=== PATIENT | male | born 1940 ===

== ENCOUNTER 2016-10-22 12:19 | Observation (INO) | payer OTHER ==
[2016-10-22 15:06] LABS: Hematocrit 49 % (42-52); Hemoglobin 16.2 g/dl (14.0-18.0); Mean Corpuscular HGB Conc 34 g/dl (31-36); Mean Corpuscular Hemoglobin 30 pg (27-31); Mean Corpuscular Volume 90 fL (80-94); Mean Platelet Volume 9 um3 (7.4-10.4); Red Blood Count 5.39 10^6/ul (4.0-5.4); Red Cell Distribution Width 13 % (10.5-15); White Blood Count 7.4 10^3/ul (3.5-10.8)
[2016-10-22 15:22] LABS: Albumin 4.7 g/dL (3.2-5.2); BUN/Creatinine Ratio 23.7 (8-20); C Reactive Protein 2.28 mg/L (< 5.00); EGFR Non-African American 75.5 (>60); Globulin 3.5 g/dL (2-4); Potassium 4.5 mmol/L (3.5-5.0); Total Bilirubin 0.6 mg/dL (0.2-1.0); Total Protein 8.2 g/dL (6.4-8.9)
[2016-10-22 15:28] LABS: Troponin I 0.04 ng/mL (<0.04)
--- NOTE | 2016-10-22 15:37 | RAD ---
HISTORY: Shortness of breath COMPARISONS: None VIEWS: 2: Frontal dual-energy and lateral views of the chest. FINDINGS: CARDIOMEDIASTINAL SILHOUETTE: The cardiomediastinal silhouette is normal. LELA: The lela are normal. PLEURA: The costophrenic angles are sharp. No pleural abnormalities are noted. LUNG PARENCHYMA: The lungs are clear. ABDOMEN: The upper abdomen is clear. There is no subphrenic gas. BONES AND SOFT TISSUES: No bone or soft tissue abnormalities are noted. OTHER: None. IMPRESSION: NO ACTIVE CARDIOPULMONARY DISEASE.
[2016-10-22] MEDS ORDERED: NS 0.9% 1000 ML* 1,000 ML IV ONE (16:35)
--- NOTE | 2016-10-22 16:36 | ED ---
Barbra Valencia SooYoung, scribed for Jt Medrano MD on 10/22/16 at 1432 . Complex/Multi-Sys Presentation - HPI Summary HPI Summary: A 76 y/o M presents to ED with c/o mild chest tightness ongoing three weeks. Pt thought he might have PNA and went to [facility] today for antibiotics, but [facility] sent pt to ED for an abnormal EKG. Associated sx: productive cough two weeks ago, resolved; mild tiredness after going on a walk yesterday. Blood pressure was 149/81 at home this AM. He notes doing some exercises today and didn't have a problem. Denies chest tightness in ED, pedal edema. Pt was recently on a flight from [place] approx 3 weeks ago. No PMHx: COPD, asthma, emphysema. He states "feeling really good" and is keen to get back to work. - History Of Current Complaint Chief Complaint: EDUpperRespComplaint Time Seen by Provider: 10/22/16 14:28 Hx Obtained From: Patient Onset/Duration: Still Present Severity Currently: None Associated Signs And Symptoms: Positive: Weakness - tiredness, Cough - resolved , Chest Pain - mild tightness. Negative: Edema - Allergies/Home Medications Allergies/Adverse Reactions: Allergies Allergy/AdvReac Type Severity Reaction Status Date / Time No Known Allergies Allergy Verified 10/22/16 12:23 Home Medications: Home Medications Aspirin EC Low Dose* [Ecotrin EC Low Dose*] 81 mg PO DAILY 10/22/16 [History Confirmed 10/22/16] Hydrochlorothiazide TAB* [Hydrodiuril TAB*] 12.5 mg PO QAM 10/22/16 [History Confirmed 10/22/16] PMH/Surg Hx/FS Hx/Imm Hx Previously Healthy: Yes Cardiovascular History: Reports: Hx Hypertension Sensory History: Reports: Hx Contacts or Glasses - GLASSES Denies: Hx Hearing Aid Opthamlomology History: Reports: Hx Contacts or Glasses - GLASSES - Surgical History Surgery Procedure, Year, and Place: LEFT ACHILLES TENDON REPAIR 2002 [facility] [place] Hx Anesthesia Reactions: No Infectious Disease History: Reports: Traveled Outside the [place] in Last 30 Days - [facility] - Family History Known Family History: Positive: Other - neg: family anaesthesia reaction - Social History Occupation: Employed Full-time Lives: Alone Alcohol Use: Weekly Hx Substance Use: No Substance Use Type: Reports: None Hx Tobacco Use: No Smoking Status (MU): Never Smoked Tobacco Review of Systems Positive: Palpitations - abnormal EKG at [place], Chest Pain - mild tightness Positive: Cough - productive, resolved Neurological: Other - pos: mild tiredness All Other Systems Reviewed And Are Negative: Yes Physical Exam - Summary Physical Exam Summary: Cordell: well-appearing, no pain distress Skin: warm, skin color reflects, dry Head/Face: nml head/face inspection Eyes: EOMI, DARIANNA ENT: nml Neck: supple, non-tender Resp: CTA, breath sounds present Cardio: RRR Abd: nontender, soft Bowel: present Musc: nml, strength/ROM intact Neuro: nml, sensory/motor intact, A&O x 3 Psych: affect/mood appropriate Triage Information Reviewed: Yes Vital Signs On Initial Exam: Initial Vitals Temp Pulse Resp BP Pulse Ox 98.1 F 54 16 161/80 98 10/22/16 12:23 10/22/16 12:23 10/22/16 12:23 10/22/16 12:23 10/22/16 12:23 Vital Signs Reviewed: Yes Diagnostics - Vital Signs Vital Signs Temp Pulse Resp BP Pulse Ox 10/22/16 13:39 97.6 F 74 16 149/79 98 10/22/16 12:23 98.1 F 54 16 161/80 98 - Laboratory Lab Results: Lab Results 10/22/16 10/22/16 10/22/16 Range/Units 14:50 14:50 14:50 WBC 7.4 (3.5-10.8) 10^3/ul RBC 5.39 (4.0-5.4) 10^6/ul Hgb 16.2 (14.0-18.0) g/dl Hct 49 (42-52) % MCV 90 (80-94) fL MCH 30 (27-31) pg MCHC 34 (31-36) g/dl RDW 13 (10.5-15) % Plt Count 152 (150-450) 10^3/ul MPV 9 (7.4-10.4) um3 Neut % (Auto) 70.7 (38-83) % Lymph % (Auto) 17.6 L (25-47) % Roseau % (Auto) 9.4 H (1-9) % Eos % (Auto) 1.4 (0-6) % Baso % (Auto) 0.9 (0-2) % Absolute Neuts (auto) 5.2 (1.5-7.7) 10^3/ul Absolute Lymphs (auto) 1.3 (1.0-4.8) 10^3/ul Absolute Monos (auto) 0.7 (0-0.8) 10^3/ul Absolute Eos (auto) 0.1 (0-0.6) 10^3/ul Absolute Basos (auto) 0.1 (0-0.2) 10^3/ul Absolute Nucleated RBC 0.01 10^3/ul Nucleated RBC % 0.2 INR (Anticoag Therapy) (0.89-1.11) D-Dimer, Quantitative (Less Than 230) ng/mL Sodium 135 (133-145) mmol/L Potassium 4.5 (3.5-5.0) mmol/L Chloride 101 (101-111) mmol/L Carbon Dioxide 28 (22-32) mmol/L Anion Gap 6 (2-11) mmol/L BUN 23 (6-24) mg/dL Creatinine 0.97 (0.67-1.17) mg/dL Est GFR ( Amer) 97.0 (>60) Est GFR (Non-Af Amer) 75.5 (>60) BUN/Creatinine Ratio 23.7 H (8-20) Glucose 109 H (70-100) mg/dL Lactic Acid 1.0 (0.5-2.0) mmol/L Calcium 10.0 (8.6-10.3) mg/dL Total Bilirubin 0.60 (0.2-1.0) mg/dL AST 34 (13-39) U/L ALT 38 (7-52) U/L Alkaline Phosphatase 61 (34-104) U/L Troponin I 0.04 H* (<0.04) ng/mL C-Reactive Protein 2.28 (< 5.00) mg/L B-Natriuretic Peptide ( - 100) pg/mL Total Protein 8.2 (6.4-8.9) g/dL Albumin 4.7 (3.2-5.2) g/dL Globulin 3.5 (2-4) g/dL Albumin/Globulin Ratio 1.3 (1-3) 10/22/16 10/22/16 Range/Units 14:50 14:50 WBC (3.5-10.8) 10^3/ul RBC (4.0-5.4) 10^6/ul Hgb (14.0-18.0) g/dl Hct (42-52) % MCV (80-94) fL MCH (27-31) pg MCHC (31-36) g/dl RDW (10.5-15) % Plt Count (150-450) 10^3/ul MPV (7.4-10.4) um3 Neut % (Auto) (38-83) % Lymph % (Auto) (25-47) % Roseau % (Auto) (1-9) % Eos % (Auto) (0-6) % Baso % (Auto) (0-2) % Absolute Neuts (auto) (1.5-7.7) 10^3/ul Absolute Lymphs (auto) (1.0-4.8) 10^3/ul Absolute Monos (auto) (0-0.8) 10^3/ul Absolute Eos (auto) (0-0.6) 10^3/ul Absolute Basos (auto) (0-0.2) 10^3/ul Absolute Nucleated RBC 10^3/ul Nucleated RBC % INR (Anticoag Therapy) 0.98 (0.89-1.11) D-Dimer, Quantitative 201 (Less Than 230) ng/mL Sodium (133-145) mmol/L Potassium (3.5-5.0) mmol/L Chloride (101-111) mmol/L Carbon Dioxide (22-32) mmol/L Anion Gap (2-11) mmol/L BUN (6-24) mg/dL Creatinine (0.67-1.17) mg/dL Est GFR ( Amer) (>60) Est GFR (Non-Af Amer) (>60) BUN/Creatinine Ratio (8-20) Glucose (70-100) mg/dL Lactic Acid (0.5-2.0) mmol/L Calcium (8.6-10.3) mg/dL Total Bilirubin (0.2-1.0) mg/dL AST (13-39) U/L ALT (7-52) U/L Alkaline Phosphatase (34-104) U/L Troponin I (<0.04) ng/mL C-Reactive Protein (< 5.00) mg/L B-Natriuretic Peptide 435 H ( - 100) pg/mL Total Protein (6.4-8.9) g/dL Albumin (3.2-5.2) g/dL Globulin (2-4) g/dL Albumin/Globulin Ratio (1-3) Result Diagrams: 10/22/16 14:50 10/22/16 14:50 Lab Statement: Any lab studies that have been ordered have been reviewed, and results considered in the medical decision making process. - Radiology CXR Xray Interpretation: No Acute Changes - IMPRESSION: no active cardiopulmonary dz Radiology Interpretation Completed By: Radiologist - EKG 1 EKG Rhythm: Atrial Fibrillation - 79 bpm Re-Evaluation - Re-Evaluation 1 Re-Evaluation Time: 16:17 Change: Unchanged Comment: Discussing results and cardiology's recommendation to admit with pt. Complex Multi-Symp Course/Dx Course Of Treatment: First trop is 0.04. Ddimer is 201. Assessment/Plan: DISCUSSED WITH DR RANGEL AND HOSPITALIST. ADMIT HOSPITALIST STABLE. - Diagnoses Provider Diagnoses: New onset a-fib, Chest pain - Physician Notifications Discussed Care Of Patient With: 1556: Spoke to Dr. Rangel, cardiology, recommends admitting pt. 1630: Spoke to Dr. Nicole, hospitalist, will admit Instructed by Provider To: Admit As Inpatient Discharge - Discharge Plan Condition: Stable Disposition: ADMITTED TO [facility] Referrals: Mo Olivares MD [Primary Care Provider] - The documentation as recorded by the Barbra fay SooYoung accurately reflects the service I personally performed and the decisions made by me, Jt Medrano MD.
[2016-10-22] MEDS ORDERED: Iohexol 350* (CONTRAST) 500 ML MDV IV ONE (16:42)
[2016-10-22 17:21] LABS: Magnesium 2.4 mg/dL (1.9-2.7)
--- NOTE | 2016-10-22 17:36 | RAD ---
Indication: Shortness of breath. Contrast: Administered 70.0 ml of OMNIPAQUE 350 mgi/ml CTA of the chest was performed after IV contrast administration. Coronal and sagittal reconstructed images were obtained. The pulmonary arterial tree is well opacified. There are no filling defects present to suggest pulmonary embolus. The trachea and major bronchi appear patent. Dependent changes are noted. No evidence of alveolar consolidation is noted. No pleural fluid is identified. The heart demonstrates no pericardial effusion. There is no mediastinal or hilar adenopathy. No pericardial effusion is noted. IMPRESSION: No evidence of pulmonary embolus is noted.
[2016-10-22] MEDS ORDERED: Ondansetron INJ* 2 MG/ML VIAL IV PRN (17:46)
[2016-10-22] MEDS ORDERED: Acetaminophen TAB* 325 MG PO PRN (17:46)
--- NOTE | 2016-10-22 21:40 | HP ---
HISTORY AND PHYSICAL: DATE OF ADMISSION: 10/22/16 PRIMARY CARE PROVIDER: Mo Olivares MD CONSULTING ORDER PROCESSOR: Toby Rangel MD ATTENDING PHYSICIAN WHILE IN THE HOSPITAL: Cornell Nicole MD * (report dictated by Otis Torres NP). CHIEF COMPLAINT: 1. Chest congestion. 2. Atrial fibrillation. HISTORY OF PRESENT ILLNESS: Mr. Carnes is a 76-year-old male patient, he has a history of hypertension and hyperlipidemia. He comes in to the ER today stating that he recently traveled from [facility]. He has been home now for a couple of weeks, but over the last couple of weeks, he has noticed that he has been having some chest congestion in the top part of his chest. He says at times it has felt tight, but he felt congested. Over for the last 3 days, he was feeling better. He put his humidifiers on at home and it improved the way he was feeling. He denied having any shortness of breath or any orthopnea, but he did admit to having decreased exercise tolerance. He says he tried going for his routine walk the other day and he just was having a hard time, he felt more tired. He denied having any fevers or chills. He said that he has not had any leg swelling or any leg discomfort or calf tenderness and no fevers or chills. He spoke to his who is currently at [facility]. She says she has known a few people with pneumonia and she encouraged him to be evaluated to make sure he did not have pneumonia, so the patient actually went to [place] today. They obtained an EKG and they found him to be in a AFib and he was sent to the ER for evaluation. Because of this, the hospitalist service was asked to evaluate for admission. PAST MEDICAL HISTORY: Significant for: 1. Hypertension. 2. Hyperlipidemia. PAST SURGICAL HISTORY: 1. He has had a hernia repair. 2. Achilles tendon repair. HOME MEDICATIONS: Include: 1. Aspirin 81 mg daily. 2. Hydrochlorothiazide 12.5 mg p.o. daily. ALLERGIES TO MEDICATION: Include no known drug allergies. FAMILY HISTORY: Both his parents did not have any heart disease. It was reviewed and noncontributory. SOCIAL HISTORY: He does not smoke. Occasionally drinks alcohol. He is . He is a [employer] professor. His surrogate decision maker is his daughter and . REVIEW OF SYSTEMS: There is no documented fever. He denied having any significant weight change. There was no double vision. There is no ear discharge. There is no rhinorrhea. There is no sore throat. No thyroid enlargement. There was chest tightness from the HPI. There is no dyspnea on exertion, no orthopnea, and no shortness of breath. There is no abdominal pain , no nausea, no vomiting. No dysuria, no frequency, no seizure, no loss of consciousness, no pruritus. No skin ulcerations. Review of 14 systems completed, all others negative. PHYSICAL EXAMINATION GENERAL: At this time, Mr. Carnes is a 76-year-old male patient. He appears to be well nourished, well developed. He is sitting in the ER stretcher. He does not appear to be in any acute distress. VITAL SIGNS: Blood pressure 152/84 with a pulse 65, respirations 18, O2 sat 96% , temperature 97.6. HEENT: Head is atraumatic, normocephalic. Eyes: EOMs are intact. Sclerae anicteric and not pale. Throat: Oral mucosa appears to be moist. No oropharyngeal erythema. NECK: Supple. LUNGS: Clear to auscultation bilaterally. No wheezes, rales, or rhonchi. HEART: Sounds S1, S2. Regular rate and rhythm. No murmurs, rubs, or gallops. ABDOMEN: Soft, flat, nontender. Bowel sounds present. EXTREMITIES: Pulses were 2+ throughout. He is able to move all 4 extremities with 5/5 strength. NEUROLOGIC: The patient is awake, alert, he is oriented x3. Tongue midline. Necktie Maker were equal. No gross focal deficits. SKIN: Grossly intact. DIAGNOSTIC STUDIES/LAB DATA: The labs today revealed WBC of 7.4, RBC of 5.39, hemoglobin of 16.2, hematocrit of 49, and platelet count 152. INR was 0.98, D- dimer 201, sodium 135, potassium 4.5, chloride of 101, bicarb 28, BUN 23, creatinine 0.97, glucose 109, lactic 1.0, calcium 10. Total mag 2.4, total bili is 0.4, AST 34, ALT 38, alk phos 61. Troponin 0.04. CRP at 2.28, BNP of 435, albumin 4.7. He had a chest, thorax CTA, which revealed no evidence of PE. Chest x-ray showed no active cardiopulmonary disease. He had an EKG obtained today. I do not have a previous for comparison, but it did show atrial fibrillation at a rate of 75, he had depression at V6. No ST elevations were noted. Old medical records were reviewed. ASSESSMENT AND PLAN: Mr. Carnes is a 76-year-old male patient coming in to the ER today with complaints of chest congestion and tightness, now found to be in atrial fibrillation. He will be admitted under observation status for: 1. Atrial fibrillation. Again, etiology is unclear when this started and what is causing this. For the time being, we will go ahead and place him on Xarelto. He is rate controlled. Dr. Rangel will be in to evaluate the patient in the morning for possible TAYLOR-guided cardioversion, possible stress test. In addition to this, I have already ordered an echo for the morning and we will cycle his troponins. 2. Indeterminate troponin. He certainly may have went into atrial fibrillation with RVR when he was walking the other day, which certainly may have caused a bumped trop, it is unclear. At this point, I will cycle his troponins, we will get an echo in the morning and Cardiology consult following. 3. Hypertension. Continue hydrochlorothiazide. 4. Hyperlipidemia. We will check a lipid panel in the morning. Continue statin therapy. 5. DVT prophylaxis: He is going to be on Xarelto. 6. Code status: Full code. 7. Fluid, electrolytes, and nutrition: He will be on heart healthy diet. TIME SPENT: Time spent on the admission 60 minutes, greater than half the time was spent [id number] with the patient obtaining my history and physical, other half the time spent going over the plan of care with the patient and implementing plan of care. I did discuss the plan of care with my attending, Dr. Nicole; he is in agreement. OTIS TORRES NP CC: Dr. Olivares; Dr. Rangel * [id number]/[facility] #: [id number] [facility]OSPITALArlene
[2016-10-22] MEDS: Rivaroxaban TAB(*) 20 MG TAB PO SCH (21:51)
[2016-10-23 04:57] LABS: Hematocrit 42 % (42-52); Mean Corpuscular HGB Conc 33 g/dl (31-36); Mean Corpuscular Hemoglobin 30 pg (27-31); Mean Corpuscular Volume 90 fL (80-94); Mean Platelet Volume 10 um3 (7.4-10.4); Red Cell Distribution Width 13 % (10.5-15); White Blood Count 6.9 10^3/ul (3.5-10.8)
[2016-10-23 05:16] LABS: Anion Gap 5 mmol/L (2-11); BUN/Creatinine Ratio 21.3 (8-20); Blood Urea Nitrogen 19 mg/dL (6-24); CO2 Carbon Dioxide 27 mmol/L (22-32); Calcium 8.8 mg/dL (8.6-10.3); Chloride 103 mmol/L (101-111); Cholesterol 164 mg/dL; EGFR African American 107.2 (>60); EGFR Non-African American 83.3 (>60); Glucose 101 mg/dL (70-100); HDL Cholesterol 39.6 mg/dL; LDL Cholesterol 113 mg/dL; Potassium 3.6 mmol/L (3.5-5.0); Sodium 135 mmol/L (133-145); Triglycerides 58 mg/dL
[2016-10-23] MEDS: Rivaroxaban TAB(*) 20 MG TAB PO SCH (09:00)
[2016-10-23] MEDS ORDERED: Aspirin EC Low Dose* 81 MG TAB.EC PO SCH (09:00)
[2016-10-23] MEDS ORDERED: Hydrochlorothiazide TAB* 25 MG PO SCH (09:00)
[2016-10-23] MEDS ORDERED: Midazolam* 1 MG/ML 5 ML VIAL (5 MG) ONE (14:47)
[2016-10-23] MEDS ORDERED: fentaNYL* 50 MCG/ML 2 ML VIAL (100 MCG VIAL) ONE (14:47)
[2016-10-23] MEDS ORDERED: Naloxone* 0.4 MG/ML 1 ML VIAL ONE (14:47)
[2016-10-23] MEDS ORDERED: Flumazenil* 0.1 MG/ML 5 ML MDV ONE (14:47)
[2016-10-23] MEDS ORDERED: Lidocaine 2% VISCOUS* 15 ML UDC ONE (14:47)
--- NOTE | 2016-10-23 15:27 | ECHO ---
Patient: MADHAVI LLAMAS [facility] Rec#: [id number] : 1940 Date: 10/23/2016 Age: 76y Height: 177.8 cm / 70.0 in Weight: 79.38 kg / 175.0 lbs Sex: M BSA: 1.97 Room#: 431 Admit Date#: 10/22/2016 Type: Inpatient Referring: Otis Torres NP Reading: Toby Rangel MD Olericulturist: María Rowell RDCS CC: Mo Olivares MD Transthoracic Echocardiogram Indication: A-fib BP: 113/62 HR: 72 Rhythm: A-Fib Findings History: HTN,HLD, a-fib. Technical Comments: The study quality is good. Completed at 1318. Left Ventricle: The left ventricular chamber size is normal. Mild to moderate concentric left ventricular hypertrophy is observed. Left ventricular systolic function is at the lower limits of normal. The estimated ejection fraction is 50-55%. There is no consistent Doppler evidence of clinically significant diastolic dysfunction. Left Atrium: The left atrium is moderately dilated. Right Ventricle: The right ventricular cavity size is normal. The right ventricular global systolic function is mildly reduced. Right Atrium: The right atrium is moderately dilated. Aortic Valve: The aortic valve is trileaflet. The aortic valve leaflets are mildly thickened. There is no evidence of aortic regurgitation. There is no evidence of aortic stenosis. Mitral Valve: The mitral valve leaflets are mildly thickened. There is trace to mild mitral regurgitation. There is no evidence of mitral stenosis. Tricuspid Valve: The tricuspid valve leaflets are normal. There is mild tricuspid regurgitation. There is evidence of borderline pulmonary hypertension. There is no tricuspid stenosis. Pulmonic Valve: The pulmonic valve appears normal. There is no evidence of pulmonic regurgitation. There is no pulmonic stenosis. Pericardium: The pericardium appears normal. Aorta: There is no dilatation of the ascending aorta. There is no dilatation of the aortic arch. There is no dilation of the aortic root. Pulmonary Artery: The main pulmonary artery appears normal. Venous: The inferior vena cava appears normal in size. There is a greater than 50% respiratory change in the inferior vena cava dimension. Conclusions Mild to moderate concentric left ventricular hypertrophy is observed. Left ventricular systolic function is at the lower limits of normal. The estimated ejection fraction is 50-55%. There is no consistent Doppler evidence of clinically significant diastolic dysfunction. The right ventricular global systolic function is mildly reduced. There is no evidence of aortic regurgitation. There is no evidence of aortic stenosis. The left atrium is moderately dilated. There is trace to mild mitral regurgitation. There is mild tricuspid regurgitation. There is evidence of borderline pulmonary hypertension. The pericardium appears normal. Measurements Name Value Normal Range RVIDd (AP) 2D 3.5 cm (0.9 - 2.6) RVDdMajor (2D) 3.8 cm (2.2 - 4.4) RAd ISD 4CH 6.3 cm (3.4 - 4.9) RA (A4C)W 5.5 cm (2.9 - 4.6) IVSd (2D) 1.5 cm (0.6 - 1) LVPWd (2D) 1.4 cm (0.6 - 1) LVIDd (2D) 3.6 cm (3.6 - 5.4) LVIDs (2D) 2.7 cm - LV FS (2D) 23 % (25 - 45) Aortic Annulus 1.7 cm (1.4 - 2.6) Ao root diameter (2D) 3.3 cm (2.1 - 3.5) Ascending Ao 3.2 cm (2.1 - 3.4) Aortic arch 2.5 cm (1.8 - 3.4) Descending Ao 0.5 cm - LA dimension (AP) 2D 5.2 cm (2.3 - 3.8) LAd ISD 4CH 7 cm (2.9 - 5.3) LA ISD 4CH W 5 cm (2.5 - 4.5) Name Value Normal Range LA ESV SP 4CH (A/L) 118 ml - LA ESV SP 2CH (A/L) 82 ml - LA ESV BP (A/L) 100 ml - LA ESV BP (A/L) index 50.93 ml/m2 - LA ESV SP 4CH (MOD) 106 ml - LA ESV SP 2CH (MOD) 79 ml - Name Value Normal Range MV E-wave Vmax 0.8 m/sec - MV deceleration time 185 msec - LV septal e' Vmax 0.05 m/sec - LV lateral e' Vmax 0.09 m/sec - LV E:e' septal ratio 16 ratio - LV E:e' lateral ratio 8.89 ratio - Name Value Normal Range AV Vmax 1.3 m/sec - AV VTI 25.1 cm - AV peak gradient 6.87 mmHg - AV mean gradient 3.33 mmHg - LVOT diameter 2 cm - LVOT Vmax 0.7 m/sec - LVOT VTI 15 cm - LVOT peak gradient 1.94 mmHg - LVOT mean gradient 0.81 mmHg - SV LVOT 49 ml - Name Value Normal Range TR Vmax 3 m/sec - TR peak gradient 36 mmHg - RAP 3 mmHg - RVSP 39 mmHg - IVC diameter 1.5 cm - Name Value Normal Range PV Vmax 0.7 m/sec - PV peak gradient 1.9 mmHg -
--- NOTE | 2016-10-23 16:28 | TEE ---
Patient: MADHAVI LLAMAS [facility] Rec#: [id number] : 1940 Date: 10/23/2016 Age: 76y Height: 175.26 cm / 69.0 in Weight: 79.38 kg / 175.0 lbs Sex: M BSA: 1.95 Room#: [facility] Type: Inpatient Referring: Toby Rangel MD Performing: Toby Rangel MD Reading: Toby Rangel MD Brim Rounder: María Rowell [facility] Nurse: Mirta Mirza RN CC: Mo Olivares MD Transesophageal Echocardiogram Indication: A-fib BP: 152/79 HR: 84 Rhythm: A-Fib Findings History: CP,a-fib. Technical Comments: The study quality is good. Left Ventricle: The left ventricular chamber size is normal. Left ventricular systolic function is at the lower limits of normal. The estimated ejection fraction is 50-55%. Left Atrium: The left atrium is moderately dilated. There is faint spontaneous echo contrast visualized in the left atrium cavity and appendage. There is no thrombus visualized in the left atrial appendage. Right Ventricle: The right ventricular cavity size is normal. The right ventricular global systolic function is normal. Right Atrium: The right atrium is mild to moderately dilated. A patent foramen ovale is not demonstrated with color Doppler and agitated contrast. Aortic Valve: The aortic valve is trileaflet. There is no evidence of aortic regurgitation. Mitral Valve: The mitral valve leaflets appear normal. There is mild mitral regurgitation. Tricuspid Valve: The tricuspid valve leaflets are normal. There is moderate tricuspid regurgitation. There is no tricuspid stenosis. Pulmonic Valve: The pulmonic valve appears normal. There is mild pulmonic regurgitation. There is no pulmonic stenosis. Pericardium: The pericardium appears normal. Aorta: There is no dilatation of the ascending aorta. There is no dilatation of the aortic arch. There is no dilation of the aortic root. There is no plaque visualized in the ascending aorta. There is no plaque visualized in the transverse aorta. There is no plaque visualized in the descending aorta. Pulmonary Artery: The main pulmonary artery appears normal. Venous: The bicaval view was obtained and appears normal. The pulmonary veins appear normal in size. 1 out of 4 seen. The flow pattern of the pulmonary veins appear normal. TAYLOR Procedures: History and physical as well as labs were reviewed. The patient was in a fasting state. Risks and benefits of the procedure, including alternatives, were discussed and written informed consent was obtained. The patient and/or their health care computer help desk representative expressed understanding of the procedure, risks and benefits. Baseline and continuous monitoring of blood pressure, heart rate, pulse oximetry and heart rhythm was performed throughout the procedure. The appropriate time-out procedure was performed as per [facility] protocol. The patient was placed in the left lateral decubitus position. The patient's posterior pharynx was anesthetized with 20ml of 2% viscous lidocaine. The patient received IV Midazolam with a total dose of 4 mg. An oral bite block was inserted for protection of oral dentition. 75mcg. The multiplane transesophageal echocardiogram probe was inserted through the posterior oropharynx and advanced into the esophagus without difficulty. Multiple 2D images were obtained of the heart and its related structures. Color flow Doppler was used for evaluation. Spectral Doppler was also used. The atrial septum was interrogated with color flow Doppler. At the conclusion of the procedure the probe was removed with continuous suction without complications. The patient tolerated the procedure with no apparent complications. Conclusions Left ventricular systolic function is at the lower limits of normal. The estimated ejection fraction is 50-55%. The left atrium is moderately dilated. There is faint spontaneous echo contrast visualized in the left atrium cavity and appendage. A patent foramen ovale is not demonstrated with color Doppler and agitated contrast. There is no thrombus visualized in the left atrial appendage. There is no evidence of aortic regurgitation. There is mild mitral regurgitation. There is moderate tricuspid regurgitation. The pericardium appears normal. There is no dilatation of the ascending aorta. Measurements Name Value Normal Range Aortic Annulus 2.2 cm (1.4 - 2.6) Ao root diameter (2D) 3.2 cm (2.1 - 3.5) Ascending Ao 2.9 cm (2.1 - 3.4) Name Value Normal Range MV E-wave Vmax 0.6 m/sec - MV deceleration time 237 msec -
[2016-10-23 17:36] VITALS: BP 112/83
--- NOTE | 2016-10-23 21:26 | CONS ---
CARDIOLOGY CONSULTATION: DATE OF CONSULT: 10/23/16 INDICATION FOR CONSULTATION: Atrial fibrillation. HISTORY OF PRESENT ILLNESS: The patient is a 76-year-old gentleman with very little past medical history, who was brought to the emergency room because of chest congestion and irregular heart beat. The patient stated he traveled recently from [facility]. When he arrived home, he had noticed some chest congestion in the upper part of his chest. He said he felt some tightness in his chest. He denied any anginal-type symptoms. The patient had these symptoms at home for 2 to 3 days before seeking medical care. The patient went to [facility] on [facility] and an EKG at that time demonstrated that he was in atrial fibrillation with controlled ventricular response. The patient was referred to the emergency room for evaluation. On arrival to the emergency room, the patient was in atrial fibrillation with controlled ventricular response. His only complaint is his mild chest congestion. He denied any palpitations. He denied any lightheadedness, dizziness, or syncope. He denied any fevers or chills. PAST MEDICAL HISTORY: Significant for mild hypertension and hyperlipidemia. PAST SURGICAL HISTORY: Hernia repair and Achilles tendon repair. OUTPATIENT MEDICATIONS: 1. Aspirin 81 mg a day. 2. Hydrochlorothiazide 12.5 mg a day. ALLERGIES: No known drug allergies. FAMILY HISTORY: No family history of early coronary artery disease or arrhythmias. SOCIAL HISTORY: He is . He denies tobacco use. He did rare alcohol use. He is a [employer] professor. PHYSICAL EXAM: Height is 5 feet 9 inches, weight is 182 pounds, temperature 97.4, heart rate is 72 and irregular, respiratory rate is 16, oxygen saturation 96% on room air, blood pressure 113/62. Sclerae are anicteric. Oropharynx is pink without erythema. Carotids are 2+ without bruits. JVD is normal. Thyroid is normal. Cardiac Exam: S1, S2 without any murmurs, rubs, or gallops. Lungs are clear to auscultation bilaterally. There is no dullness to percussion. Abdomen is soft, nontender, nondistended with normoactive bowel sounds. Extremities show no edema. He has 2+ pulses throughout. The patient is awake, alert, and oriented. He moves all 4 extremities equally. DIAGNOSTIC STUDIES/LAB DATA: CBC within normal limits. Chemistry is within normal limits. Troponin is minimally elevated at 0.04. TSH is pending. Total cholesterol 164. LDL of 113. HDL of 40. The patient underwent a transesophageal echocardiogram, which demonstrated normal LV size and systolic function. Ejection fraction of 50%. He had mild mitral regurgitation, moderate tricuspid regurgitation, mild pulmonary hypertension, no pericardial effusion. The patient underwent cardioversion to a normal sinus rhythm. His post- conversion EKG demonstrated sinus bradycardia with PACs. IMPRESSION: This is a 76-year-old gentleman who was admitted to the hospital with atrial fibrillation. The patient was started on anticoagulation. He was started on Xarelto 20 mg a day. The patient underwent transesophageal echocardiogram and cardioversion back to normal sinus rhythm. The patient's underlying rhythm is sinus bradycardia at 51 beats per minute. RECOMMENDATIONS: It is my recommendation the patient be discharged from the hospital on Xarelto 20 mg a day. The patient will not be discharged on Cardizem or beta blockers because of his resting bradycardia. I will see the patient in followup in 2 to 3 weeks and make further recommendations at that time. CC: Dr. Mo Olivares * [id number]/[facility] #: [id number] LUCIO
--- NOTE | 2016-10-23 22:58 | CARD ---
CARDIOVERSION REPORT: DATE OF PROCEDURE: 10/23/16 - ROOM #431 PROCEDURE: Cardioversion. INDICATION: Atrial fibrillation. The patient is a 76-year-old gentleman who was admitted to the hospital with shortness of breath. He was found to be in atrial fibrillation. The patient had just undergone a transesophageal echocardiogram, which demonstrated normal LV size and systolic function, dilated left atrium, trace mitral regurgitation, mild-to- moderate tricuspid regurgitation, no evidence of thrombus in his left atrial appendage. Cardioversion was recommended. DESCRIPTION OF PROCEDURE: The patient was in a fasting state. Informed consent had been obtained prior to the procedure. All labs had been reviewed. The patient was already sedated from his transesophageal echocardiogram. The patient was cardioverted with 120 joules of synchronized biphasic energy. The patient converted to sinus bradycardia at 45 to 50 beats per minute. The patient tolerated the procedure well and there were no complications. CC: Dr. Mo Olivares* [id number]/[facility] #: [id number] LUCIO
--- NOTE | 2016-10-24 04:35 | DS ---
DISCHARGE SUMMARY: DATE OF ADMISSION: 10/22/16 DATE OF DISCHARGE: 10/23/16 PRIMARY CARE PROVIDER: Dr. Olivares. CONSULTING [employer] COMPRESSOR MECHANIC: Dr. Rangel. DISCHARGE DIAGNOSIS: Atrial fibrillation, status post cardioversion. SECONDARY DIAGNOSES: 1. Hypertension. 2. Hyperlipidemia. MEDICATIONS: Hydrochlorothiazide 12.5 mg p.o. daily. New Medication: Rivaroxaban 20 mg p.o. daily. HOSPITAL COURSE: Mr. Carnes is a 76-year-old male with a past medical history stated above that presented to the emergency room with complaints of chest congestion on the top part of his chest, sometimes felt as tightness. He was evaluated at [facility] and an EKG showed that he was in atrial fibrillation so he was sent to the emergency room for further evaluation. For more details about his presentation, I refer you to his history and physical. The patient had serial troponins that were 0.04 three times. EKG showed atrial fibrillation, but with rate controlled with the heart rate in the 50s with no rate controlling agents. The patient had a CTA of the chest, this showed no evidence of pulmonary embolus. A transthoracic echocardiogram showed ejection fraction of 50% to 55% with a moderately dilated left atrium, borderline pulmonary hypertension. The patient was seen in consultation by Cardiology (Dr. Rangel) and his recommendation was for TAYLOR cardioversion and the patient agreed. The procedure was performed and the patient is now in sinus bradycardia, asymptomatic. Dr. Rangel felt that anti-arrhythmics are not indicated at this time and the patient will continue anticoagulation with Xarelto. He received education about the medication and he is medically stable for discharge at this time to follow up with Dr. Rangel as outpatient in 2 weeks. PHYSICAL EXAMINATION: Vital Signs: Temperature 97.5, heart rate is 50, respiratory rate is 16, oxygen saturation is 96%, and blood pressure is 132/69. General: The patient is a pleasant, elderly male sitting up in bed, in no acute distress. Extremities: No edema. Neuro: He is alert, awake, and oriented x3. Able to move all 4 extremities. DIET: Heart healthy diet. ACTIVITY: As tolerated. DISPOSITION: To home. STATUS WHILE IN THE HOSPITAL: Observation. Please keep in mind this is a summarized version of this patient's hospital stay. If you need more information, please feel free to call me at [phone] or please obtain the full medical records. TIME SPENT: Approximately 45 minutes were spent to complete this discharge. CC: Dr. Olivares; Dr. Rangel* [id number]/[facility] #: [id number] [facility]
== END 2016-10-23 18:10 | disposition home or self-care (01) ==
LOC: ED 12:19 → MEDTELE 17:41
PROVIDERS: ADMIT Internal Medicine; ATTEND Internal Medicine
DX: I97.89 Other postprocedural complications and disorders of the circulatory system, not elsewhere classified (principal); Y83.8 Other surgical procedures as the cause of abnormal reaction of the patient, or of later complication, without mention of misadventure at the time of the procedure; I48.91 Unspecified atrial fibrillation; I10 Essential (primary) hypertension; E78.5 Hyperlipidemia, unspecified; Z79.82 Long term (current) use of aspirin
CPT/HCPCS: 36415; 71020; 71275; 80048; 80053; 80061; 83036; 83605; 83735; 83880; 84484; 85025; 85379; 85610; 86140; 92960; 93005; 93306; 93312; 93325; 99284; A9270-GY; G0378; J2250; J2310; J3010; Q9967